=== PATIENT | female | born 1950 | race Native Hawaiian/Other Pacific Islander ===

== ENCOUNTER 2018-09-30 11:41 | Outpatient (CLI) | payer OTHER | END 2018-09-30 11:50 | disposition short-term general hospital (02) | LOC: AMB 11:41 | DX: M54.5 Low back pain (principal); V49.9XXA Car occupant (driver) (passenger) injured in unspecified traffic accident, initial encounter; Y93.89 Activity, other specified; Y92.89 Other specified places as the place of occurrence of the external cause | CPT/HCPCS: A0425; A0427 ==

== ENCOUNTER 2018-09-30 11:52 | Emergency (ER) | payer OTHER ==
[~2018-09-30] VITALS: Ht 157.5 cm; Wt 102.1 kg
[2018-09-30 11:53] VITALS: TEMP 97.3
[2018-09-30 13:40] VITALS: BP 164/78
== END 2018-09-30 13:42 | disposition home or self-care (01) ==
LOC: ED 12:00
DX: S29.012A Strain of muscle and tendon of back wall of thorax, initial encounter (principal); V89.2XXA Person injured in unspecified motor-vehicle accident, traffic, initial encounter
CPT/HCPCS: 93005; 99283